=== PATIENT | male | born 1965 | race Caucasian/White ===

== ENCOUNTER 2017-11-03 19:59 | Inpatient (IN) | payer MEDICAID ==
[~2017-11-03] VITALS: Ht 188 cm; Wt 149.9 kg
[~2017-11-03 19:59] MED LIST: FLUO10CA26 PO; RISP0.253 PO; [UNRECOGNIZED DRUG - REMARK]
--- NOTE | 2017-11-03 20:24 | NUR ---
PT BIB SELF, PT C/O SOB AND LEG SWELLING WITH CP X 1 WEEK GETTING WORSE. PT AOX3 RR EVEN AND UNLABORED. NO SOB NOTED. NAD NOTED. NO NVD AT THIS TIME. PT GOWNED AND PLACED ON MONITOR WAITING FOR MD LARA.
--- NOTE | 2017-11-03 20:27 | NUR ---
DR. LORA AT BEDSIDE FOR EVAL.
[2017-11-03] MEDS ORDERED: ASPIRIN 325 MG TABLET PO ONE (20:30)
[2017-11-03 20:48] LABS: BASOPHILS # (AUTO) 0.2 /CMM (0.0-0.2); BASOPHILS % (AUTO) 1.6 % (0.0-2.0); EOSINOPHILS # (AUTO) 0.3 /CMM (0.0-0.7); EOSINOPHILS % (AUTO) 2.3 % (0.0-6.0); HEMATOCRIT 42 % (39-51); HEMOGLOBIN 13.5 g/dL (13.5-17.5); LYMPHOCYTES % (AUTO) 22.9 % (20.0-44.0); MEAN CORPUSCULAR HEMOGLOBIN 25 PG (26.0-33.0); MEAN CORPUSCULAR HGB CONC 32 g/dl (31.0-36.0); MEAN CORPUSCULAR VOLUME 77 fL (80-96); MONOCYTES # (AUTO) 0.7 /CMM (0.1-1.30); MONOCYTES % (AUTO) 5.6 % (2.0-12.0); NEUTROPHILS # (AUTO) 8.9 /CMM (1.8-8.9); NEUTROPHILS % (AUTO) 67.6 % (43.0-81.0); PLATELET COUNT (AUTO) 328 /CMM (150-450); RDW COEFFICIENT OF VARIATION 14.4 (11.5-15.0); RED BLOOD CELL COUNT(AUTO) 5.45 MIL/uL (4.5-6.0); WHITE BLOOD COUNT (AUTO) 13.1 K/uL (4.3-11.0)
--- NOTE | 2017-11-03 20:48 | NUR ---
RADIOLOGY AT BEDSIDE FOR XR
[2017-11-03 20:58] LABS: CALCIUM, SERUM 8.1 mg/dL (8.5-10.1); CREATININE 1.4 mg/dL (0.6-1.3); POTASSIUM 4.1 mmol/L (3.5-5.1)
[2017-11-03] MEDS ORDERED: ASPIRIN 325 MG TABLET ONE (21:01)
[2017-11-03 21:02] LABS: INR 0.95 (0.85-1.15)
[2017-11-03 21:05] LABS: TROPONIN I 0.053 ng/mL (0.00-0.056)
[2017-11-03 21:10] LABS: ALBUMIN 3.3 g/dL (3.4-5.0); BILIRUBIN,DIRECT 0.2 mg/dL (0.0-0.2); BILIRUBIN,TOTAL 0.5 mg/dL (0.2-1.0); TOTAL PROTEIN, SERUM 6.6 g/dL (6.4-8.2)
--- NOTE | 2017-11-03 21:15 | NUR ---
DR. LORA AT BEDSIDE SPEAKING TO PT REGARDING RESULTS
--- NOTE | 2017-11-03 21:18 | NUR ---
[facility], ABIDA DE SOUZA RESIDENT INTERN
--- NOTE | 2017-11-03 21:19 | NUR ---
CALLED NURSING SUP. FOR TELE BED
--- NOTE | 2017-11-03 21:24 | NUR ---
DR. LORA SPOKE TO VINICIO DE SOUZA REGARDING ADMISSION
[2017-11-03] MEDS ORDERED: FUROSEMIDE 40 MG/4 ML VIAL IV ONE (21:30)
[2017-11-03] MEDS ORDERED: NITROGLYCERIN PACKET 1 GM PACKET TOP ONE (21:30)
[2017-11-03] MEDS ORDERED: FUROSEMIDE 40 MG/4 ML VIAL ONE (21:32)
[2017-11-03] MEDS ORDERED: NITROGLYCERIN PACKET 1 GM PACKET ONE (21:32)
--- NOTE | 2017-11-03 21:38 | NUR ---
TUGGER OPERATOR DE SOUZA AT BEDSIDE FOR EVAL.
[2017-11-03] MEDS ORDERED: ALBU1.257 IH (21:41)
[2017-11-03] MEDS ORDERED: LOSA25TA13 PO (21:41)
[2017-11-03] MEDS ORDERED: ATOR10TA PO (21:41)
[2017-11-03] MEDS ORDERED: HYDR12.5 PO (21:41)
[2017-11-03] MEDS ORDERED: ACETAMINOPHEN 325 MG TABLET PO PRN (22:00)
[2017-11-03] MEDS ORDERED: Z GUARD REMEDY 2 OZ OINT TP PRN (22:00)
[2017-11-03] MEDS ORDERED: MORPHINE SULFATE INJ 2 MG/ML DISP.SYRIN IV PRN (22:00)
[2017-11-03] MEDS ORDERED: MAG HYDROX/AL HYDROX/SIMETH 30 ML UDC PO PRN (22:00)
[2017-11-03] MEDS ORDERED: MAGNESIUM HYDROXIDE 30 ML UDC PO PRN (22:00)
[2017-11-03] MEDS ORDERED: ONDANSETRON HCL/PF 4 MG/2 ML VIAL IVP PRN (22:00)
--- NOTE | 2017-11-03 22:07 | NUR ---
AWARE OF PT CURRENTLY BP
--- NOTE | 2017-11-03 22:25 | NUR ---
TELE 306-2
--- NOTE | 2017-11-03 22:25 | NUR ---
INFORMED PAC DE SOUZA PT CURRENT BP. HOSPITALIST AWARE. ORDERS TO GIVE IVP HYDRAZLINE 10MG ONE TIME.
[2017-11-03] MEDS ORDERED: hydrALAZINE HCL IV 20 MG VIAL ONE (22:26)
[2017-11-03] MEDS ORDERED: hydrALAZINE HCL IV 20 MG VIAL IV ONE (22:30)
--- NOTE | 2017-11-03 22:32 | NUR ---
LAB AT BEDSIDE FOR BLOOD CX DRAW
--- NOTE | 2017-11-03 23:21 | NUR ---
PT TRANSFERRED PER ACLS PROTOCOL.
[2017-11-03 23:25] VITALS: BP 169/103
--- NOTE | 2017-11-03 23:25 | NUR ---
RN OPEN NOTES RECEIVED PATIENT ER VIA MAX. A/O X4. NO SIGNS OF DISTRESS OR DISCOMFORT. BREATHING EVEN AND UNLABORED. ON 2LPM O2 VIA NC. IV ACCESS IN LAC, PATENT AND INTACT, NO SIGNS OF REDNESS OR INFILTRATION. ATTACHED PATIENT TO TELE MONITOR WITH ST 111 NOTED. ORIENTED PATIENT TO UNIT AND ROOM. NO SKIN ISSUES NOTED. BED IN LOW LOCKED POSITION WITH SIDE RAILS X2. CALL LIGHT WITHIN REACH. WILL CONTINUE TO MONITOR.
[2017-11-03] MEDS: HYDROCODONE/APAP 5/325MG 1 EACH TABLET PO PRN (23:48)
[2017-11-04] VITALS (17 sets, daily range): BP systolic 132–203; BP diastolic 75–138
[2017-11-04] MEDS ORDERED: NITROPRUSSIDE SODIUM 50 MG in IV D5W 250 ML IV PRN (01:00)
--- NOTE | 2017-11-04 01:17 | NUR ---
RN NOTES NOTIFIED DE SOUZA APPLIED COMPUTER SCIENCE PROFESSOR OF PATIENTS ELEVATED BP. ORDERS GIVEN TO TRANSFER PATIENT TO ICU FOR NITRO DRIP. WILL CARRY OUT ORDERS.
--- NOTE | 2017-11-04 02:23 | NUR ---
RN NOTES PATIENT TRANSFERRED TO ICU VIA ACLS PROTOCOL. A/O X4. NO SIGNS OF DISTRESS OR DISCOMFORT. BREATHING EVEN AND UNLABORED. ALL NEEDS ATTENDED TO.
[2017-11-04] MEDS ORDERED: CLONIDINE HCL 0.1 MG TABLET PO ONE (02:30)
[2017-11-04] MEDS ORDERED: CLONIDINE HCL 0.1 MG TABLET ONE (02:40)
[2017-11-04 03:10] LABS: APPEARANCE,URINE CLEAR (CLEAR); BILIRUBIN,URINE NEGATIVE (NEGATIVE); BLOOD, URINE NEGATIVE Ery/uL (NEGATIVE); COLOR,URINE YELLOW (YELLOW); KETONES,URINE NEGATIVE (NEGATIVE); LEUKOCYTE ESTERASE ,URINE NEGATIVE (NEGATIVE); NITRITE, URINE NEGATIVE (NEGATIVE); PH,URINE 5.5 (5.0-8.0); PROTEIN,URINE NEGATIVE (NEGATIVE); UGLUCOSE NEGATIVE (NEGATIVE); UROBILINOGEN,URINE 0.2 EU/dL (0.2)
[2017-11-04] MEDS: hydrALAZINE HCL IV 20 MG VIAL IV PRN ×2 (03:48→08:11)
[2017-11-04 05:55] LABS: BASOPHILS # (AUTO) 0.1 /CMM (0.0-0.2); BASOPHILS % (AUTO) 0.6 % (0.0-2.0); EOSINOPHILS # (AUTO) 0.5 /CMM (0.0-0.7); EOSINOPHILS % (AUTO) 3.4 % (0.0-6.0); HEMATOCRIT 39 % (39-51); HEMOGLOBIN 12.8 g/dL (13.5-17.5); LYMPHOCYTES # (AUTO) 3.1 /CMM (0.8-4.8); LYMPHOCYTES % (AUTO) 22.4 % (20.0-44.0); MEAN CORPUSCULAR HEMOGLOBIN 25 PG (26.0-33.0); MEAN CORPUSCULAR HGB CONC 33 g/dl (31.0-36.0); MEAN CORPUSCULAR VOLUME 76 fL (80-96); MONOCYTES # (AUTO) 0.8 /CMM (0.1-1.30); MONOCYTES % (AUTO) 5.8 % (2.0-12.0); NEUTROPHILS # (AUTO) 9.3 /CMM (1.8-8.9); NEUTROPHILS % (AUTO) 67.8 % (43.0-81.0); PLATELET COUNT (AUTO) 293 /CMM (150-450); RDW COEFFICIENT OF VARIATION 15.7 (11.5-15.0); RED BLOOD CELL COUNT(AUTO) 5.12 MIL/uL (4.5-6.0); WHITE BLOOD COUNT (AUTO) 13.6 K/uL (4.3-11.0)
[2017-11-04 06:10] LABS: CALCIUM, SERUM 8.4 mg/dL (8.5-10.1); MAGNESIUM 2.1 mg/dL (1.8-2.4); PHOSPHORUS 4.5 mg/dL (2.5-4.9); POTASSIUM 3.6 mmol/L (3.5-5.1)
[2017-11-04 06:15] LABS: TROPONIN I 0.059 ng/mL (0.00-0.056)
[2017-11-04 06:19] LABS: THYROID STIMULATING HORMONE 1.342 uIU/mL (0.358-3.74)
--- NOTE | 2017-11-04 07:15 | NUR ---
ICU/RN: Pt received standing in room, taking leads and monitoring devices off stating "I want to leave." Educated pt on risks of leaving AMA, pt states "ok fine I'll see" Pt declines physical assessment at this time. C/O sob with exertion however repeatedly removes NC, SPO2 monitor. Sat pt in high fowlers position and encouraged deep breathing and relaxation techniques. Decreased stimuli in room for comfort. pipe out worker updated.
[2017-11-04] MEDS: HYDROCODONE/APAP 5/325MG 1 EACH TABLET PO PRN (08:11)
--- NOTE | 2017-11-04 08:30 | NUR ---
ICU/RN: Dr Edwards at bedside speaking with pt. Updated on pt status, non-compliance, pt anxious about going home and aggressive towards. Pt agreed to stay to take cardiac meds. Ok to downgrade to tele once BP is better controlled per Dr Edwards.
[2017-11-04] MEDS ORDERED: VALSARTAN 80 MG TABLET PO SCH (09:00)
[2017-11-04] MEDS ORDERED: CARVEDILOL 12.5 MG TABLET PO SCH (09:00)
[2017-11-04] MEDS ORDERED: ASPIRIN 81 MG TAB.CHEW PO SCH (09:00)
[2017-11-04] MEDS ORDERED: LOSARTAN POTASSIUM 25 MG TABLET PO SCH (09:00)
[2017-11-04] MEDS ORDERED: ENOXAPARIN SODIUM 40 MG/0.4 ML DISP.SYRIN SQ SCH (09:00)
[2017-11-04] MEDS ORDERED: Fluoxetine 10 mg capsule PO SCH (09:00)
[2017-11-04] MEDS ORDERED: hydrALAZINE HCL 50 MG TABLET PO SCH (09:00)
[2017-11-04] MEDS ORDERED: risperiDONE 0.25 MG TABLET PO SCH (09:00)
--- NOTE | 2017-11-04 10:10 | NUR ---
ICU/RN: Dr Leos at bedside. Discussed care with pt, currently refusing monitoring, only agrees to BP monitoring. Pt states non-compliance with meds for past few months. Placed on O2 4L/min via NC. Repositioned for comfort. SBP maintained to <160mm/Hg. Addendum: 11/04/17 at 1048 by AILYN CHATTERJEE RN addendum: Informed MD that pt has been anxious to leave AMA since 0800 in addition to non-compliance with POC
--- NOTE | 2017-11-04 10:43 | NUR ---
ICU/RN: Pt pacing and agitated in [facility], states "I'm leaving, I'm going AMA. I have all my stuff, my BP is ok now I want to go home. I'm going to take the bus." Educated on risks of leaving AMA and reinforced to pt that he needs to take his home meds, stop smoking and f/u with PCP. Verbalized understanding. IV HL dc'd, catheter tip intact, pressure applied. Pt escorted to lobby by EMBROIDERY SPECIALIST.
[2017-11-04] MEDS ORDERED: CARV25TA2 PO (15:21)
[2017-11-04] MEDS ORDERED: VALS160T2 PO (15:21)
[2017-11-04] MEDS ORDERED: ATORVASTATIN 10 MG TABLET PO SCH (18:00)
== END 2017-11-04 10:43 | disposition left against medical advice (07) | DRG 133 ==
LOC: ER 19:59 → TELE 22:37 → ICU 11-04 02:16
PROVIDERS: ADMIT Nurse Practitioner Acute Care; ATTEND Nurse Practitioner Acute Care
DX: J96.01 Acute respiratory failure with hypoxia (principal); I21.A1 Myocardial infarction type 2; I50.31 Acute diastolic (congestive) heart failure; N17.9 Acute kidney failure, unspecified; R65.10 Systemic inflammatory response syndrome (SIRS) of non-infectious origin without acute organ dysfunction; Z68.41 Body mass index [BMI] 40.0-44.9, adult; I11.0 Hypertensive heart disease with heart failure; E66.01 Morbid (severe) obesity due to excess calories; I16.1 Hypertensive emergency; I25.2 Old myocardial infarction; F31.9 Bipolar disorder, unspecified; F17.210 Nicotine dependence, cigarettes, uncomplicated; E78.5 Hyperlipidemia, unspecified; Z91.14 Patient's other noncompliance with medication regimen; F43.10 Post-traumatic stress disorder, unspecified; G47.33 Obstructive sleep apnea (adult) (pediatric); D72.829 Elevated white blood cell count, unspecified; Z71.6 Tobacco abuse counseling; F15.90 Other stimulant use, unspecified, uncomplicated
CPT/HCPCS: 36415; 71045-TC; 80048-TC; 80061-TC; 80076-TC; 80305; 81000-TC; 83735-TC; 83880; 84100-TC; 84443-TC; 84484-TC; 85025-TC; 85730-TC; 87040-TC; 87081-TC; 87086-TC; 94799-TC; A4606; J0360; J1650; J1940; J7030; Z7610